=== PATIENT | female | born 1985 | race Two or more races ===

== ENCOUNTER 2018-02-19 15:55 | Emergency (ER) | payer MEDICAID ==
[~2018-02-19] VITALS: Ht 154.9 cm; Wt 69.4 kg
[2018-02-19 17:33] LABS: Basophils # (auto) 0 uL; Basophils % (auto) 0.4 % (0.0-2.0); Eosinophils # (auto) 0.2 uL; Hemoglobin 11.8 g/dL (12.2-16.2); Lymphocytes # (auto) 1.4 uL; Monocytes # (auto) 0.7 uL; Neutrophils # (auto) 7.9 uL; White Blood Cell 10.2 10^3/uL (4.4-10.8)
[2018-02-19 17:34] LABS: Eosinophils % (auto) 1.6 % (0.0-7.0); Hematocrit 35.2 % (36.0-46.0); Lymphocytes % (auto) 13.7 % (10.0-50.0); Mean Corpuscular Hemoglobin 26.1 pg (28.0-32.0); Mean Corpuscular Hgb Conc. 33.4 g/dL (32.0-36.0); Mean Corpuscular Volume 78.2 fL (80.0-100.0); Neutrophils % (auto) 77.3 % (37.0-80.0); Platelet Count (auto) 141 10^3/uL (140-450); Red Cell Distribution Width 14.9 % (11.8-14.3)
[2018-02-19 18:32] LABS: Urine WBC None Seen /hpf (0 - 5)
[2018-02-19 18:43] LABS: Urine Bacteria FEW /hpf (None Seen); Urine Blood 1+ /uL (Negative); Urine Specific Gravity 1.006 (1.001-1.035)
[2018-02-19 19:31] VITALS: BP 109/63
== END 2018-02-19 19:35 | disposition home or self-care (01) ==
LOC: ER 15:55
DX: O23.41 Unspecified infection of urinary tract in pregnancy, first trimester (principal); O99.511 Diseases of the respiratory system complicating pregnancy, first trimester; J45.909 Unspecified asthma, uncomplicated; Z3A.01 Less than 8 weeks gestation of pregnancy
CPT/HCPCS: 36415; 76801; 81001; 84702; 85025